=== PATIENT | female | born 1990 | race Caucasian/White ===

== ENCOUNTER → 2016-05-24 | Outpatient (CLI) | payer BC ==
[2016-05-24 18:24] LABS: BASOPHILS # (AUTO) 0.05 10*3/UL; BASOPHILS % (AUTO) 0.4 % (0-1); EOSINOPHILS % (AUTO) 1.1 % (0-8); HEMATOCRIT 36.9 % (37.0-47.0); HEMOGLOBIN 12.6 g/dL (12.0-16.0); IMM GRAN# (AUTO) 0.14 10*3/UL; LYMPHOCYTES # (AUTO) 2.33 10*3/uL; LYMPHOCYTES % (AUTO) 16.9 % (10-50); MEAN CORPUSCULAR HEMOGLOBIN 32.2 PG (27-31); MEAN CORPUSCULAR HGB CONC 34.1 g/dL (33-37); MEAN PLATELET VOLUME 11.2 FL (7.4-12.2); MONOCYTES # (AUTO) 0.59 10*3/UL (0.3-0.8); MONOCYTES % (AUTO) 4.3 % (5-15); NEUTROPHILS # (AUTO) 10.53 10*3/UL; NEUTROPHILS % (AUTO) 76.3 % (50-80); RDW COEFFICIENT OF VARIATION 12.7 % (11.5-14.5); RED BLOOD COUNT 3.91 10^6/uL (4.20-5.40); WHITE BLOOD COUNT 13.79 10^3/uL (4.8-10.8)
[2016-05-24 18:48] LABS: PLATELET MORPHOLOGY COMMENT NORMAL MORPHOLOGY (NORM)
== END ==
LOC: LAB 17:15
PROVIDERS: ATTEND Student in an Organized Health Care Education/Training Program
DX: Z36 Encounter for antenatal screening of mother (principal); Z3A.29 29 weeks gestation of pregnancy
CPT/HCPCS: 36415; 82950; 85025

== ENCOUNTER → 2016-06-09 | Outpatient (CLI) | payer BC | LOC: LAB 08:07 | PROVIDERS: ATTEND Student in an Organized Health Care Education/Training Program | DX: O26.893 Other specified pregnancy related conditions, third trimester (principal); R73.02 Impaired glucose tolerance (oral); Z3A.30 30 weeks gestation of pregnancy | CPT/HCPCS: 36415; 82951; 82952 ==

== ENCOUNTER → 2016-07-13 | Outpatient (CLI) | payer BC | LOC: MOB LAB 09:33 | PROVIDERS: ATTEND Student in an Organized Health Care Education/Training Program | DX: Z36 Encounter for antenatal screening of mother (principal); Z3A.35 35 weeks gestation of pregnancy | CPT/HCPCS: 87150 ==

== ENCOUNTER → 2016-07-28 | Outpatient (CLI) | payer BC | LOC: MOB LAB 16:20 | PROVIDERS: ATTEND Student in an Organized Health Care Education/Training Program | DX: Z36 Encounter for antenatal screening of mother (principal); Z3A.38 38 weeks gestation of pregnancy | CPT/HCPCS: 87491; 87591 ==

== ENCOUNTER 2016-07-31 18:40 | Outpatient (CLI) | payer BC ==
[2016-07-31] MEDS ORDERED: NORMAL SALINE 10 ML SYRINGE FLUSH IVP PRN (19:06)
[2016-07-31 19:13] VITALS: RESP 18; TEMP 98.2
[2016-07-31 19:16] LABS: HEMATOCRIT 38.3 % (37.0-47.0); HEMOGLOBIN 12.9 g/dL (12.0-16.0); MEAN CORPUSCULAR HEMOGLOBIN 31.2 PG (27-31); MEAN CORPUSCULAR HGB CONC 33.7 g/dL (33-37); MEAN CORPUSCULAR VOLUME 92.7 FL (81-99); MEAN PLATELET VOLUME 11.8 FL (7.4-12.2); RED BLOOD COUNT 4.13 10^6/uL (4.20-5.40)
[2016-07-31 19:26] LABS: BLOOD UREA NITROGEN 11 mg/dL (7-22); BUN/CREATININE RATIO 13.75 (6-20); EST GLOMERULAR FILTRATION > 60 (>60 ml/min/1.73m(2)); SERUM ALBUMIN 3.5 g/dL (3.5-4.8); URIC ACID 5.5 mg/dl (2.5-6.2)
--- NOTE | 2016-07-31 21:19 | PDOC(PROG) ---
Intake - - Reason for Visit/Chief Complaint: Contractions, PIH Symptoms Admitted From: Home - Estimated Due Date: 08/11/16 Gestational Age in Weeks and Days: 38 Weeks and 3 Days : 1 Para: 0 Term Births: 0 Births: 0 Number of Abortions (Spont./Elective): 0 Living Children: 0 - Labs Blood Type and Rh: B+ Group B Strep: Negative Hepatitis B Surface Antigen: Absent HIV: Negative Rubella Status: Immune VDRL/RPR: Absent Maternal - Vital Signs Last Taken Vital Signs: Vital Signs - Last Taken Temperature 98.2 F 07/31/16 19:05 Pulse Rate 84 07/31/16 19:05 Respiratory Rate 18 07/31/16 19:05 Blood Pressure 141/84 07/31/16 19:05 Pulse Ox 100 07/31/16 19:05 - Uterine Activity Uterine Contraction Monitor Mode: External Contraction Frequency(minutes): 1.5-3 Contraction Duration (seconds): 40-60 Uterine Contraction Pattern: Irregular Uterine Tone Measurement Phase: Resting Uterine Contraction Intensity: Moderate - Cervical Exam Cervical Dilation (cm): 0-1 Cervical Effacement Percentage: 90 Station: -2 Exam Performed By: Jessee Wallace/ Nick Paula RN - Vaginal Discharge Vaginal Bleeding Amount: None Vaginal Discharge Amount: None Monitoring - Uterine Activity Uterine Contraction Monitor Mode: External Contraction Frequency(minutes): 1.5-3 Contraction Duration (seconds): 40-60 Uterine Contraction Pattern: Irregular Uterine Tone Measurement Phase: Resting Uterine Contraction Intensity: Moderate Results - Labs CBC and BMP: 07/31/16 19:14 07/31/16 19:14 - Bedside Testing Bedside Urine Ketone: Negative Bedside Urine Leukocytes Esterase: Negative Bedside Urine Nitrite: Negative Bedside Urine Occult Blood: Negative Bedside Urine Protein: Negative Bedside Specific [place]: 1.000 Assessment and Plan - Patient Problems (1) EARLY LABOR Current Visit: Yes Status: AcuteSupport Text: 26 yo at 38 3/7 who presented to work not feeling well, diaphoretic. BP initially elevated. Noted to be kaushik q2-5 mins, category 1 tracing. No protein on urine dip. PIH labs drawn and WNL. With rest BPs normalized. Cervical exam /-2. 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 Patient given options of staying and rechecking vs going home, resting. Patient opted to go home. Strict return precautions discussed. To see me in clinic Art, sooner for any concerns.
== END 2016-07-31 20:00 | disposition home or self-care (01) ==
LOC: OBOP 18:40
PROVIDERS: ATTEND Student in an Organized Health Care Education/Training Program
DX: O47.1 False labor at or after 37 completed weeks of gestation (principal); O13.3 Gestational [pregnancy-induced] hypertension without significant proteinuria, third trimester; Z3A.38 38 weeks gestation of pregnancy
CPT/HCPCS: 36415; 59025; 80053; 81003; 83615; 84550; 85025; 99211

== ENCOUNTER 2016-08-01 10:56 | Inpatient (IN) | payer BC ==
[2016-08-01] MEDS ORDERED: NORMAL SALINE 10 ML SYRINGE FLUSH IVP PRN ×2 (11:07→12:24)
[2016-08-01] MEDS ORDERED: ACETAMINOPHEN 325 MG TABLET PO ONE (11:09)
[2016-08-01 11:20] LABS: HEMATOCRIT 37.1 % (37.0-47.0); HEMOGLOBIN 12.7 g/dL (12.0-16.0); MEAN CORPUSCULAR HEMOGLOBIN 31.8 PG (27-31); MEAN CORPUSCULAR HGB CONC 34.2 g/dL (33-37); MEAN PLATELET VOLUME 11.5 FL (7.4-12.2); RED BLOOD COUNT 3.99 10^6/uL (4.20-5.40)
[2016-08-01 11:26] LABS: BLOOD UREA NITROGEN 8 mg/dL (7-22); CALCIUM 8.9 mg/dL (8.7-10.7); EST GLOMERULAR FILTRATION > 60 (>60 ml/min/1.73m(2)); SERUM ALBUMIN 3.6 g/dL (3.5-4.8); URIC ACID 5.4 mg/dl (2.5-6.2)
[2016-08-01] MEDS ORDERED: ePHEDrine Inj 5 MG in Normal Saline Flush 1 ML IVP PRN (12:24)
[2016-08-01] MEDS ORDERED: BUTORPHANOL TARTRATE 2 MG/1 ML VIAL IVP PRN (12:24)
[2016-08-01] MEDS ORDERED: LIDOCAINE W/ SODIUM BICARB 0.5 ML SYR SUBD PRN (12:24)
[2016-08-01] MEDS ORDERED: CITRIC ACID/SODIUM CITRATE 30 ML CUP PO PRN (12:24)
[2016-08-01] MEDS ORDERED: NALOXONE 0.4 MG/1 ML VIAL IVP PRN (12:24)
[2016-08-01] MEDS ORDERED: CefOXitin Inj 2 GM in Sodium Chloride 0.9% 100 ML IV PRN (12:24)
[2016-08-01] MEDS ORDERED: Lidocaine 1% 10 MG/ML - 20 ML VIAL SUBCUT PRN (12:24)
[2016-08-01] MEDS ORDERED: Carboprost Inj 250 MCG/ML AMP IM PRN (12:24)
[2016-08-01] MEDS ORDERED: METHYLERGONOVINE MALEATE 0.2 MG/1 ML VIAL IM PRN (12:24)
[2016-08-01] MEDS ORDERED: TERBUTALINE SULFATE 1 MG/1 ML SDV SUBCUT PRN (12:24)
[2016-08-01] MEDS ORDERED: Phenylephrine Inj 50 MCG in Normal Saline Flush 0.5 ML IVP PRN (12:24)
[2016-08-01] MEDS ORDERED: Nalbuphine Inj 20 MG/ML Ampule IVP PRN (12:24)
[2016-08-01] MEDS ORDERED: OXYTOCIN 10 UNIT/1 ML IM PRN (12:24)
[2016-08-01] MEDS ORDERED: ONDANSETRON 4 MG/2 ML VIAL IVP PRN (12:24)
[2016-08-01] MEDS ORDERED: CALCIUM CARBONATE 500 MG (TUMS) CHEWABLE TABLET PO PRN (12:24)
[2016-08-01] MEDS ORDERED: Famotidine Inj 20 MG in Normal Saline Flush 10 ML IVP PRN ×4 (12:24)
[2016-08-01] MEDS ORDERED: Metoclopramide Inj 10 MG/2 ML VIAL IV PRN (12:24)
[2016-08-01] MEDS ORDERED: Naloxone Inj 0.01 MG in Normal Saline Flush 1 ML IVP PRN (12:24)
[2016-08-01] MEDS ORDERED: diphenhydrAMINE 50 MG/1 ML VIAL IVP PRN (12:24)
[2016-08-01] MEDS ORDERED: MISOPROSTOL 200 MCG TABLET RECTAL PRN (12:24)
[2016-08-01] MEDS ORDERED: Oxytocin 20 Units + LR 1,000 ML IV SCH (12:30)
[2016-08-01] MEDS ORDERED: LIDOCAINE W/ SODIUM BICARB 0.5 ML SYR ONE (12:37)
--- NOTE | 2016-08-01 12:42 | OB.PROGRES ---
Interval History: 26 yo at 38 4/7 weeks gestation by LMP and first tri u/s presented this morning for increased nausea, PAEZ, not feeling well in general. Upon arrival she was noted to have repeated BPs >140/90, trace protein on urine dip. She has not slept well in 2 days now with consistent contractions. PAEZ resolved since getting to the floor. has been uncomplicated. GBS negative. Received TDaP. Anterior placenta , normal anatomy scan. 1 hour OGTT 160, normal 3 hour. PMH: Asthma, very rare albuterol use, none lately Raynauds Abnormal pap 2015, s/p cryo PSH: Mccarr teeth extraction FH: Fa - HTN, BCC, HLD MGF, JOHANNA, Kimmy - celiac disease Mo - alive and well MGM - breast cancer Ricky's family history - Father - prostate cancer Maternal side - Diabetes SH: . No etoh, illicit drug or cigarette use Objective - Cervical Exam Cervical Exam: 50/-3, cephalic, mid position [place]: q 2-6 mins Heart Rate: , mod trish, +accels, -decels Heart Rate Interpretation Category: Category I - Labs CBC and BMP: 08/01/16 11:13 08/01/16 11:13 Labs - Last 24 Hours: Laboratory Results 08/01/16 Range/Units 11:13 WBC 10.36 (4.8-10.8) 10^3/uL RBC 3.99 L (4.20-5.40) 10^6/uL Hgb 12.7 (12.0-16.0) g/dL Hct 37.1 (37.0-47.0) % MCV 93.0 (81-99) FL MCH 31.8 H (27-31) PG MCHC 34.2 (33-37) g/dL RDW Std Deviation 43.4 (39-50) fL RDW Coeff of Trish 13.1 (11.5-14.5) % Plt Count 140 (140-350) 10*3/uL MPV 11.5 (7.4-12.2) FL Sodium 137 (135-145) meq/L Potassium 3.7 L (3.8-5.2) meq/L Chloride 105 (98-112) meq/L Carbon Dioxide 21 L (23-33) meq/L Anion Gap 11 (5-20) BUN 8 (7-22) mg/dL Creatinine 0.8 (0.50-1.20) mg/dL Estimated GFR > 60 (>60 ml/min/1.73m(2)) BUN/Creatinine Ratio 10.00 (6-20) Glucose 76 L (78-110) mg/dL Calculated Osmolality 280.0 (267-292) mOsm/kg Uric Acid 5.4 (2.5-6.2) mg/dl Calcium 8.9 (8.7-10.7) mg/dL Total Bilirubin 0.7 (0.3-1.2) mg/dL AST 33 (8-39) IU/L ALT 25 (9-52) IU/L Alkaline Phosphatase 184 H (38-126) IU/L Lactate Dehydrogenase 445 (313-618) IU/L Total Protein 6.5 (6.1-8.0) g/dL Albumin 3.6 (3.5-4.8) g/dL Globulin 2.9 (2.50-4.10) g/dL Albumin/Globulin Ratio 1.20 L (1.3-2.0) mg/g - Vital Signs Last Taken Vital Signs: Vital Signs - Last Taken Temperature 98.2 F 08/01/16 11:34 Pulse Rate 78 08/01/16 11:34 Respiratory Rate 18 08/01/16 11:34 Blood Pressure 159/92 08/01/16 11:34 Pulse Ox 99 08/01/16 11:34 - Additional Details Additional Details: Reflexes 3+, no clonus 2+ non pitting edema of legs Assessment and Plan - Patient Problems (1) Gestational hypertension Current Visit: Yes Status: Acute Support Text: 26 yo at 38 4/7 weeks gestation with gestational HTN, admitted for IOL. -BPs elevated today to >140/90, but not in severe range. Urine dip is trace protein, we do not currently have reagent for in house urine proteins, would be a sendout. Gestational htn labs all wnl otherwise. -Alphonse too frequently for cytotec, will start with low dose pit for cervical ripening. -Continue close observation -Will eventually want an epidural for pain
[2016-08-01] MEDS: Oxytocin 20 Units + LR 1,000 ML IV SCH ×2 (13:15→14:45)
[2016-08-01] MEDS: fentaNYL Inj 100 MCG/2 ML VIAL IV PRN (19:40)
--- NOTE | 2016-08-01 20:13 | OB.PROGRES ---
Interval History: 26 yo at 38 4/7 weeks gestation, admitted for gestational HTN. Her spot urine pr:cr came back elevated at 0.35, so technically she does meet criteria for preeclampsia. She had 7 hours of low dose pit without change. Given h/o cryotherapy to cervix and likely scar tissue, will trial mechanical dilation. Patient comfortable, slight PAEZ but has improved. Does not want to take tylenol. Objective - Cervical Exam Painter: q2-4 mins Heart Rate: baseline 140, mod trish, +accels, no decels Heart Rate Interpretation Category: Category I - Labs CBC and BMP: 08/01/16 11:13 08/01/16 11:13 Labs - Last 24 Hours: Laboratory Results 08/01/16 08/01/16 Range/Units 11:13 15:30 WBC 10.36 (4.8-10.8) 10^3/uL RBC 3.99 L (4.20-5.40) 10^6/uL Hgb 12.7 (12.0-16.0) g/dL Hct 37.1 (37.0-47.0) % MCV 93.0 (81-99) FL MCH 31.8 H (27-31) PG MCHC 34.2 (33-37) g/dL RDW Std Deviation 43.4 (39-50) fL RDW Coeff of Trish 13.1 (11.5-14.5) % Plt Count 140 (140-350) 10*3/uL MPV 11.5 (7.4-12.2) FL Sodium 137 (135-145) meq/L Potassium 3.7 L (3.8-5.2) meq/L Chloride 105 (98-112) meq/L Carbon Dioxide 21 L (23-33) meq/L Anion Gap 11 (5-20) BUN 8 (7-22) mg/dL Creatinine 0.8 (0.50-1.20) mg/dL Estimated GFR > 60 (>60 ml/min/1.73m(2)) BUN/Creatinine Ratio 10.00 (6-20) Glucose 76 L (78-110) mg/dL Calculated Osmolality 280.0 (267-292) mOsm/kg Uric Acid 5.4 (2.5-6.2) mg/dl Calcium 8.9 (8.7-10.7) mg/dL Total Bilirubin 0.7 (0.3-1.2) mg/dL AST 33 (8-39) IU/L ALT 25 (9-52) IU/L Alkaline Phosphatase 184 H (38-126) IU/L Lactate Dehydrogenase 445 (313-618) IU/L Total Protein 6.5 (6.1-8.0) g/dL Albumin 3.6 (3.5-4.8) g/dL Globulin 2.9 (2.50-4.10) g/dL Albumin/Globulin Ratio 1.20 L (1.3-2.0) mg/g Ur Random Creatinine 34 MG/DL U Random Total Protein 12 H (0-11.99) MG/DL - Vital Signs Last Taken Vital Signs: Vital Signs - Last Taken Temperature 98.3 F 08/01/16 13:15 Pulse Rate 72 08/01/16 18:00 Respiratory Rate 20 08/01/16 20:05 Blood Pressure 144/71 08/01/16 18:00 Pulse Ox 98 08/01/16 16:30 Assessment and Plan - Patient Problems (1) Gestational hypertension Current Visit: Yes Status: Acute Support Text: 26 yo at 38 4/7 weeks gestation with preeclampsia by pressures >140/90 and urine pr:cr 0.35, admitted for IOL. -Alphonse too frequently for cytotec, cook catheter placed without issue ( 80cc in uterine bulb, 40cc in vaginal bulb) -Continue close observation -Will eventually want an epidural for pain
--- NOTE | 2016-08-02 09:03 | OB.PROGRES ---
Date and Time of Service: 08/02/16 @ 0855 Interval History: Pt was seen this morning on labor and delivery. She had been admitted yesterday afternoon with symptomatic mild pre-eclampsia. Her has been essentially uncomplicated to this point. She does have a h/o asthma, with intermittent albuterol MDI use. She also has the history of cryotherapy to her cervix in 2014. Her cervix was 1/50/-2 on admission, with frequent, regular contractions. She was started on low-dose pitocin yesterday and had no cervical change despite painful contractions. A Cook catheter was placed last noc per Dr. Noriega, left in for 12 hours and taken out this morning. Her cervix remains 1/75/-2. She is having infrequent, nonpainful contractions this morningve. She denies PAEZ, vision changes, or RUQ pain. Her edema remains unchanged. Baby is active. She has had no vaginal bleeding or gushes of fluid. Objective - Cervical Exam Cervical Exam: 75/-2 [place]: irregular, every 7-11 minutes. Pt is not feeling her contractions. They palpate mild. Heart Rate: 150, moderate variabilty, no decels noted. Heart Rate Interpretation Category: Category I - Labs CBC and BMP: 08/01/16 11:13 08/01/16 11:13 Labs - Last 24 Hours: Laboratory Results 08/01/16 08/01/16 Range/Units 11:13 15:30 WBC 10.36 (4.8-10.8) 10^3/uL RBC 3.99 L (4.20-5.40) 10^6/uL Hgb 12.7 (12.0-16.0) g/dL Hct 37.1 (37.0-47.0) % MCV 93.0 (81-99) FL MCH 31.8 H (27-31) PG MCHC 34.2 (33-37) g/dL RDW Std Deviation 43.4 (39-50) fL RDW Coeff of Trish 13.1 (11.5-14.5) % Plt Count 140 (140-350) 10*3/uL MPV 11.5 (7.4-12.2) FL Sodium 137 (135-145) meq/L Potassium 3.7 L (3.8-5.2) meq/L Chloride 105 (98-112) meq/L Carbon Dioxide 21 L (23-33) meq/L Anion Gap 11 (5-20) BUN 8 (7-22) mg/dL Creatinine 0.8 (0.50-1.20) mg/dL Estimated GFR > 60 (>60 ml/min/1.73m(2)) BUN/Creatinine Ratio 10.00 (6-20) Glucose 76 L (78-110) mg/dL Calculated Osmolality 280.0 (267-292) mOsm/kg Uric Acid 5.4 (2.5-6.2) mg/dl Calcium 8.9 (8.7-10.7) mg/dL Total Bilirubin 0.7 (0.3-1.2) mg/dL AST 33 (8-39) IU/L ALT 25 (9-52) IU/L Alkaline Phosphatase 184 H (38-126) IU/L Lactate Dehydrogenase 445 (313-618) IU/L Total Protein 6.5 (6.1-8.0) g/dL Albumin 3.6 (3.5-4.8) g/dL Globulin 2.9 (2.50-4.10) g/dL Albumin/Globulin Ratio 1.20 L (1.3-2.0) mg/g Ur Random Creatinine 34 MG/DL U Random Total Protein 12 H (0-11.99) MG/DL - Vital Signs Last Taken Vital Signs: Vital Signs - Last Taken Temperature 97.9 F 08/02/16 02:30 Pulse Rate 63 08/02/16 03:38 Respiratory Rate 16 08/02/16 06:50 Blood Pressure 113/61 08/02/16 03:38 Pulse Ox 100 08/02/16 06:50 Assessment and Plan - Assessment / Plan Additional Assessment/Plan Details: A/p: 26 yo G1 at 38 5/7 weeks, with mild pre-eclampsia. -no cervical change with Cook catheter or low-dose pitocin. She does have a h/o cryotherapy 2 years ago. There does feel like there is some scar tissue/a band of tissue present. Will try cytotec this morning as she is not kaushik as much to see if we can get some cervical change. -recheck labs this morning (gestational HTN panel) -GBS negative. -will want an epidural at some point for pain control. -h/o asthma. -continue expectant management. Discussed plan with pt and her spouse at the bedside today.
[2016-08-02] MEDS: Misoprostol Tab 100 MCG TAB VAGINAL SCH ×2 (09:28→17:33)
[2016-08-02 09:31] LABS: HEMATOCRIT 34.9 % (37.0-47.0); HEMOGLOBIN 11.9 g/dL (12.0-16.0); MEAN CORPUSCULAR HEMOGLOBIN 31.7 PG (27-31); MEAN CORPUSCULAR HGB CONC 34.1 g/dL (33-37); MEAN CORPUSCULAR VOLUME 93.1 FL (81-99); MEAN PLATELET VOLUME 11.7 FL (7.4-12.2); RED BLOOD COUNT 3.75 10^6/uL (4.20-5.40)
[2016-08-02 09:37] LABS: BLOOD UREA NITROGEN 11 mg/dL (7-22); BUN/CREATININE RATIO 13.75 (6-20); EST GLOMERULAR FILTRATION > 60 (>60 ml/min/1.73m(2)); SERUM ALBUMIN 3.2 g/dL (3.5-4.8); URIC ACID 6.2 mg/dl (2.5-6.2)
[2016-08-02] MEDS ORDERED: ACETAMINOPHEN 325 MG TABLET PO ONE (09:38)
[2016-08-02] MEDS: fentaNYL Inj 100 MCG/2 ML VIAL IV PRN ×5 (14:36→17:08)
[2016-08-02] MEDS: Lactated Ringers-OB Dept 1,000 ML PRIMARY IV SCH ×2 (15:58→17:32)
[2016-08-02] MEDS ORDERED: Sodium Chloride 0.9% vial 10 ML ONE ×3 (16:28→20:30)
[2016-08-02] MEDS ORDERED: Fent/Bupiv 2mcg/0.0625% Epid 250 ML ONE (16:43)
--- NOTE | 2016-08-02 16:58 | CRNA.PROCE ---
Central Neuraxis Block Placear - - Safety Measures: Time Out Taken, Site Verified - - Type of Block: Epidural Reason for Block: Analgesia Moniters Used During Block: SPO2, NIBP Sedation Used - Enter Amount Used in Comment Field: Fentanyl (mcg): Yes (200mcg) Skin Prep Used: Betadine Draped: Yes Skin Infiltration - Enter Amount Used in Comment Field: 1% Xylocaine (mL): Yes ( skin wheal) Introducer User: 18 Gauge Hustead Local Anesthetic - Enter Amount Used in Comment Field: 5.0 % Xylocaine with Dextrose (ml): Yes (5ml test dose neg) Number of Centimeters Catheter Threaded: 4 Bioclusive Dressing Applied: Yes - - Additional Details: Requests epidural for ELIESER analgesia. History obtained and chart reviewed. Reviewed risks and benefits and she wishes to proceed. Sitting, monitors, landmarks id'd, betadine prep, drape, skin wheal l3-4, #18 hustead passed and bone, redirected, bone. Pt repositioned and skin wheal L4-5, hustead passed and LULÚ to saline obtained. Cath threaded 4cm, heme noted, flushed and heme remains. Cath removed intact. Replaced at L4-5 with LULÚ and cath easily 4cm, no heme noted this pass. 5ml test dose neg. Cath secured and PCEA started. Laboratory Results 08/01/16 08/01/16 08/02/16 Range/Units 11:13 15:30 09:20 WBC 10.36 9.42 (4.8-10.8) 10^3/uL RBC 3.99 L 3.75 L (4.20-5.40) 10^6/uL Hgb 12.7 11.9 L (12.0-16.0) g/dL Hct 37.1 34.9 L (37.0-47.0) % MCV 93.0 93.1 (81-99) FL MCH 31.8 H 31.7 H (27-31) PG MCHC 34.2 34.1 (33-37) g/dL RDW Std Deviation 43.4 42.7 (39-50) fL RDW Coeff of Trish 13.1 13.2 (11.5-14.5) % Plt Count 140 137 L (140-350) 10*3/uL MPV 11.5 11.7 (7.4-12.2) FL Sodium 137 136 (135-145) meq/L Potassium 3.7 L 3.7 L (3.8-5.2) meq/L Chloride 105 105 (98-112) meq/L Carbon Dioxide 21 L 20 L (23-33) meq/L Anion Gap 11 11 (5-20) BUN 8 11 (7-22) mg/dL Creatinine 0.8 0.8 (0.50-1.20) mg/dL Estimated GFR > 60 > 60 (>60 ml/min/1.73m(2)) BUN/Creatinine Ratio 10.00 13.75 (6-20) Glucose 76 L 87 (78-110) mg/dL Calculated Osmolality 280.0 279.0 (267-292) mOsm/kg Uric Acid 5.4 6.2 (2.5-6.2) mg/dl Calcium 8.9 9.0 (8.7-10.7) mg/dL Total Bilirubin 0.7 0.6 (0.3-1.2) mg/dL AST 33 30 (8-39) IU/L ALT 25 20 (9-52) IU/L Alkaline Phosphatase 184 H 155 H (38-126) IU/L Lactate Dehydrogenase 445 410 (313-618) IU/L Total Protein 6.5 6.1 (6.1-8.0) g/dL Albumin 3.6 3.2 L (3.5-4.8) g/dL Globulin 2.9 2.9 (2.50-4.10) g/dL Albumin/Globulin Ratio 1.20 L 1.10 L (1.3-2.0) mg/g Ur Random Creatinine 34 MG/DL U Random Total Protein 12 H (0-11.99) MG/DL Vital Signs - Last Taken Temperature 97.9 F 08/02/16 10:30 Pulse Rate 64 08/02/16 15:00 Respiratory Rate 18 08/02/16 15:32 Blood Pressure 140/86 08/02/16 15:00 Pulse Ox 99 08/02/16 15:32
[2016-08-02] MEDS ORDERED: fentaNYL 2 MCG/BUPIVACAINE 0.0625%/NS 0.9% 250 ML BAG EPIDURAL SCH (17:00)
[2016-08-02] MEDS ORDERED: BUPivacaine Inj 0.25% PF - 10ml vial ONE ×2 (17:06→20:30)
--- NOTE | 2016-08-02 17:15 | CRNA.PROGR ---
Anesthesia Note Anesthesia Progress Note: Epidural pain control all but sacral innervation, discussed possible reasons and gave 20ml 1/8% marcaine plain to rule out a volume issue.
[2016-08-02] MEDS: Oxytocin 20 Units + LR 1,000 ML IV SCH ×2 (17:33→21:50)
--- NOTE | 2016-08-02 18:48 | OB.PROGRES ---
Date and Time of Service: 08/02/16 @ 1800 Interval History: Pt is finally comfortable with her epidural. Continues to leak clear fluid. Wanting to rest right now, according to nursing staff. Objective - Cervical Exam Cervical Exam: / [place]: every 2-5 minutes, come couplets now. Heart Rate: 130s, moderate variability, early decels noted. Heart Rate Interpretation Category: Category I - Labs CBC and BMP: 08/02/16 09:20 08/02/16 09:20 Labs - Last 24 Hours: Laboratory Results 08/02/16 Range/Units 09:20 WBC 9.42 (4.8-10.8) 10^3/uL RBC 3.75 L (4.20-5.40) 10^6/uL Hgb 11.9 L (12.0-16.0) g/dL Hct 34.9 L (37.0-47.0) % MCV 93.1 (81-99) FL MCH 31.7 H (27-31) PG MCHC 34.1 (33-37) g/dL RDW Std Deviation 42.7 (39-50) fL RDW Coeff of Trish 13.2 (11.5-14.5) % Plt Count 137 L (140-350) 10*3/uL MPV 11.7 (7.4-12.2) FL Sodium 136 (135-145) meq/L Potassium 3.7 L (3.8-5.2) meq/L Chloride 105 (98-112) meq/L Carbon Dioxide 20 L (23-33) meq/L Anion Gap 11 (5-20) BUN 11 (7-22) mg/dL Creatinine 0.8 (0.50-1.20) mg/dL Estimated GFR > 60 (>60 ml/min/1.73m(2)) BUN/Creatinine Ratio 13.75 (6-20) Glucose 87 (78-110) mg/dL Calculated Osmolality 279.0 (267-292) mOsm/kg Uric Acid 6.2 (2.5-6.2) mg/dl Calcium 9.0 (8.7-10.7) mg/dL Total Bilirubin 0.6 (0.3-1.2) mg/dL AST 30 (8-39) IU/L ALT 20 (9-52) IU/L Alkaline Phosphatase 155 H (38-126) IU/L Lactate Dehydrogenase 410 (313-618) IU/L Total Protein 6.1 (6.1-8.0) g/dL Albumin 3.2 L (3.5-4.8) g/dL Globulin 2.9 (2.50-4.10) g/dL Albumin/Globulin Ratio 1.10 L (1.3-2.0) mg/g - Vital Signs Last Taken Vital Signs: Vital Signs - Last Taken Temperature 98.2 F 08/02/16 17:03 Pulse Rate 88 08/02/16 16:30 Respiratory Rate 16 08/02/16 17:17 Blood Pressure 154/92 08/02/16 16:30 Pulse Ox 99 08/02/16 16:30 Assessment and Plan - Patient Problems (1) Mild pre-eclampsia affecting first Current Visit: Yes Status: Acute - Assessment / Plan Additional Assessment/Plan Details: -Pt had a cervical band, which was reduced somewhat by the nurse when she was checked. She went from 1-2 to a 3-4 cm. She does have an IUPC placed to monitor contractions. Will augment with pitocin if needed to attain adequate contractions. -GBS negative. -comfortable with epidural. -continue expectant management.
[2016-08-03] MEDS: fentaNYL Inj 100 MCG/2 ML VIAL IV PRN ×2 (00:50→04:33)
[2016-08-03] MEDS ORDERED: Sodium Chloride 0.9% vial 10 ML ONE (01:36)
[2016-08-03] MEDS ORDERED: BUPivacaine Inj 0.25% PF - 10ml vial ONE (01:36)
--- NOTE | 2016-08-03 01:50 | CRNA.PROGR ---
Anesthesia Note Anesthesia Progress Note: Has had some returning pain and continues to have some leakage from the epidural injection site. The site and catheter insertion pitt still look ok and it appears the fluid is vectoring out along the catheter but the catheter remains in. Manual bolus done with 20ml 1/8% marcaine. If this is not effective will discuss placing an intrathecal for remainder of analgesia requirements.
[2016-08-03] MEDS ORDERED: LIDOCAINE 2%/ EPI 1:200,000 - 20 ML VIAL ONE (02:20)
[2016-08-03] MEDS ORDERED: Ropivacaine 0.2% VIAL 20 ML ONE (02:28)
[2016-08-03] MEDS ORDERED: fentaNYL Inj 100 MCG/2 ML VIAL ONE (02:28)
--- NOTE | 2016-08-03 02:50 | CRNA.PROCE ---
Central Neuraxis Block Placemt - - Safety Measures: Time Out Taken, Site Verified - - Type of Block: Subarachnoid Reason for Block: Analgesia Moniters Used During Block: SPO2, NIBP Skin Prep Used: Betadine Draped: Yes Skin Infiltration - Enter Amount Used in Comment Field: 1% Xylocaine (mL): Yes Introducer User: 23 Gauge Spinal Needle Used: 25 [place] 80 mm Local Anesthetic - Enter Amount Used in Comment Field: Other Local Anesthetic: Yes (4mg 0.2% Ropivacaine) Additive Used - Enter Amount Used in Comment Field: Fentanyl (mcg): Yes (20mcg) - - Additional Details: Epidural inadequate, catheter dc'c intact, appears it had migrated out. Intrathecal for ELIESER analgesia
[2016-08-03] MEDS ORDERED: Oxytocin 20 Units + LR 1,000 ML IV SCH ×2 (03:30→08:11)
[2016-08-03] MEDS ORDERED: ePHEDrine Inj 50 MG/ML AMP ONE (04:55)
[2016-08-03] MEDS ORDERED: Oxytocin 20 Units + LR 1,000 ML IV ONE (04:59)
[2016-08-03] MEDS ORDERED: Lactated Ringers 1,000 ML PRIMARY IV ONE (05:19)
[2016-08-03] MEDS ORDERED: HYDROmorphone 2 MG/1 ML IVP PRN (05:58)
[2016-08-03] MEDS ORDERED: ONDANSETRON 4 MG/2 ML VIAL IVP PRN ×2 (05:58→08:11)
[2016-08-03] MEDS ORDERED: fentaNYL Inj 100 MCG/2 ML VIAL IVP PRN (05:58)
[2016-08-03] MEDS ORDERED: NORMAL SALINE 10 ML SYRINGE FLUSH IVP PRN ×2 (05:58→08:11)
--- NOTE | 2016-08-03 06:14 | OB.PROGRES ---
Date and Time of Service: 08/03/16 @ 0445 Interval History: Pt has had issues with pain control most of the noc. She has had her epidural redosed per Paulina Eaton CRNA several times. Once she was again comfortable this morning, pitocin was increased because her contractions were not adequate. However, the baby started having recurrent late decelerations, which stopped as soon as the pitocin was discontinued. Objective - Cervical Exam Cervical Exam: 6-7/cervix is swollen so difficult to tell effacement/-2 [place]: every 2-3 minutes, palpating hard Heart Rate: 130s, moderate variability, no current decels. Heart Rate Interpretation Category: Category I - Labs CBC and BMP: 08/02/16 09:20 08/02/16 09:20 Labs - Last 24 Hours: Laboratory Results 08/02/16 08/03/16 Range/Units 09:20 04:48 WBC 9.42 (4.8-10.8) 10^3/uL RBC 3.75 L (4.20-5.40) 10^6/uL Hgb 11.9 L (12.0-16.0) g/dL Hct 34.9 L (37.0-47.0) % MCV 93.1 (81-99) FL MCH 31.7 H (27-31) PG MCHC 34.1 (33-37) g/dL RDW Std Deviation 42.7 (39-50) fL RDW Coeff of Trish 13.2 (11.5-14.5) % Plt Count 137 L (140-350) 10*3/uL MPV 11.7 (7.4-12.2) FL Sodium 136 (135-145) meq/L Potassium 3.7 L (3.8-5.2) meq/L Chloride 105 (98-112) meq/L Carbon Dioxide 20 L (23-33) meq/L Anion Gap 11 (5-20) BUN 11 (7-22) mg/dL Creatinine 0.8 (0.50-1.20) mg/dL Estimated GFR > 60 (>60 ml/min/1.73m(2)) BUN/Creatinine Ratio 13.75 (6-20) Glucose 87 (78-110) mg/dL Calculated Osmolality 279.0 (267-292) mOsm/kg Uric Acid 6.2 (2.5-6.2) mg/dl Calcium 9.0 (8.7-10.7) mg/dL Total Bilirubin 0.6 (0.3-1.2) mg/dL AST 30 (8-39) IU/L ALT 20 (9-52) IU/L Alkaline Phosphatase 155 H (38-126) IU/L Lactate Dehydrogenase 410 (313-618) IU/L Total Protein 6.1 (6.1-8.0) g/dL Albumin 3.2 L (3.5-4.8) g/dL Globulin 2.9 (2.50-4.10) g/dL Albumin/Globulin Ratio 1.10 L (1.3-2.0) mg/g Blood Type B POSITIVE Antibody Screen Negative - Vital Signs Last Taken Vital Signs: Vital Signs - Last Taken Temperature 98.2 F 08/02/16 17:03 Pulse Rate 70 08/03/16 00:15 Respiratory Rate 18 08/02/16 19:00 Blood Pressure 140/83 08/03/16 00:00 Pulse Ox 99 08/03/16 00:15 Assessment and Plan - Patient Problems (1) Mild pre-eclampsia affecting first Current Visit: Yes Status: Acute (2) Arrest of descent, delivered, current hospitalization Current Visit: Yes Status: Acute - Assessment / Plan Additional Assessment/Plan Details: -pt has not changed her cervix for the past several hours. The baby is not tolerating augmentation of her contractions with pitocin. I discussed the options with the pt and at this point, I would advise operative delivery via section. The pt agrees with this plan. Consents were signed, OR crew was notified and pt will be taken to the OR as soon as the crew is here and ready.
[2016-08-03] MEDS ORDERED: KETOROLAC 15 MG/1 ML VIAL ONE (07:45)
[2016-08-03] MEDS: KETOROLAC 15 MG/1 ML VIAL IVP PRN ×3 (07:45→20:11)
[2016-08-03] MEDS ORDERED: oxyCODONE-ACETAMINOPHEN 5-325 TAB PO ONE (07:54)
[2016-08-03] MEDS: oxyCODONE-ACETAMINOPHEN 5-325 TAB PO PRN ×4 (08:00→20:11)
[2016-08-03] MEDS ORDERED: OXYTOCIN 10 UNIT/1 ML IM ONE (08:11)
[2016-08-03] MEDS ORDERED: Famotidine Inj 20 MG in Normal Saline Flush 10 ML IVP PRN (08:11)
[2016-08-03] MEDS ORDERED: diphenhydrAMINE 25 MG CAPSULE PO PRN (08:11)
[2016-08-03] MEDS ORDERED: MISOPROSTOL 200 MCG TABLET RECTAL ONE (08:11)
[2016-08-03] MEDS ORDERED: LANOLIN HPA 40 GM TUBE TOPICAL PRN (08:11)
[2016-08-03] MEDS ORDERED: DIPH,PERTUSS,TET(ADACEL) VAC/PF 0.5 ML (Tdap) IM SCH (08:11)
[2016-08-03] MEDS ORDERED: KETOROLAC 30 MG/1 ML VIAL IVP PRN (08:11)
[2016-08-03] MEDS ORDERED: Naloxone Inj 0.01 MG, Sodium Chloride 0.9% vial 1 ML IVP PRN ×2 (08:11)
[2016-08-03] MEDS ORDERED: Nalbuphine Inj 20 MG/ML Ampule IVP PRN (08:11)
[2016-08-03] MEDS ORDERED: diphenhydrAMINE 50 MG/1 ML VIAL IV PRN (08:11)
[2016-08-03] MEDS ORDERED: CALCIUM CARBONATE 500 MG (TUMS) CHEWABLE TABLET PO PRN (08:11)
[2016-08-03] MEDS ORDERED: HYDROmorphone 2 MG/1 ML IV PRN (08:11)
--- NOTE | 2016-08-03 08:53 | OB.OP.NOTE ---
Operative Report - - Surgeon: Vita Weller MD Stockbroking Dealer: Noé Del Cid MD Anesthesia Type: Regional Anesthesia Provider: Edgar Eaton CRNA Surgery Date: 08/03/16 Preoperative Diagnosis: Failure to progress, cephalopelvic disproportion Postoperative Diagnosis: same, delivered Procedure: Primary section Complications: none Estimated Blood Loss (mL): 500 Urine Output (mL): 200 Fluids: 1000 cc of LR Indications: Pt is a 26 yo G1 at 38 5/7 weeks who was admitted for symptomatic mild pre- eclampsia. She underwent cervical ripening with low dose pitocin, a Cook catheter and then was augmented with artificial rupture of membranes and then pitocin. She had an IUPC placed to accurately document contractions. She had a very long latent labor and then a protracted active labor as well. Her cervix was dilated to as much as 8 cm, but then actually regressed as her cervix became more swollen during labor. Baby also did not tolerate pitocin augmentation (even low dose at 1-2 mU), with recurrent late decelerations. Pt was counseled on all of the above and agreed to proceed with a primary section. Findings: female infant in OP presentation, hand up to face, clear amniotic fluid. Description of Procedure: The patient was taken to the operating room where spinal anesthesia was found to be adequate. She was then prepared and draped in the normal sterile fashion in the dorsal supine position with a leftward tilt. A Pfannenstiel skin incision was then made with the scalpel and carried through to the underlying layer of fascia with the Bovie. The fascia was incised in the midline and the incision extended laterally with the Bovie. The superior aspect of the fascial incision was then grasped with Jai clamps, elevated, and the underlying rectus muscles dissected off bluntly. Attention was then turned to the inferior aspect of this incision which, in a similar fashion, was grasped with Jai clamps and the rectus muscles dissected off both bluntly and with the Bovie. The rectus muscles were then in the midline, and the peritoneum identified and entered digitally. The peritoneal incision was then extended superiorly and inferiorly with good visualization of the bladder. The Grant retractor was then inserted and the vesicouterine peritoneum was identified. The lower uterine segment was incised in a transverse fashion with the scalpel. The uterine incision was then extended laterally in a blunt fashion. The infant' s head was delivered atraumatically. The nose and mouth were suctioned with the bulb suction and the cord clamped and cut. The was handed off to the awaiting nurse. Cord gases and cord blood were sent for analysis. The placenta was then removed manually; the uterus exteriorized, and cleared of all clots and debris. The uterine incision was repaired with 0 Vicryl in a running, locked fashion. A second layer of the same suture was used to obtain excellent hemostasis. The peritoneal cavity was then copiously irrigated with warm saline. The uterus was returned to the abdomen. The paracolic gutters were copiously irrigated with warm saline and a second look at the uterine incision continued to reveal excellent hemostasis. The peritoneum was closed with 3-0 Vicryl. The fascia was reapproximated with 0 vicryl in a running fashion. The subcutaneous space was irrigated copiously with warm saline and then closed first with 3-0 Vicryl and then more superficially with Insorb absorbable sutures. The skin was reapproximated with Steri-Strips and a Silverlon dressing applied. Fundal massage was completed with no clots in vaginal vault. The patient tolerated the procedure well. Sponge, lap, and needle counts were correct x2. Mefoxin was given preoperatively less than one hour prior to incision time. The patient was taken to the recovery room in stable condition. Patient Problems - Patient Problem List (1) Mild pre-eclampsia affecting first Status: Acute (2) Arrest of descent, delivered, current hospitalization Status: Acute
[2016-08-03] MEDS: D5-LR 1,000 ML PRIMARY IV SCH (12:05)
[2016-08-04] MEDS: oxyCODONE-ACETAMINOPHEN 5-325 TAB PO PRN ×5 (00:11→16:27)
[2016-08-04] MEDS: Lactated Ringers-OB Dept 1,000 ML PRIMARY IV SCH ×2 (00:18→03:14)
[2016-08-04] MEDS: Misoprostol Tab 100 MCG TAB VAGINAL SCH ×2 (00:18→03:15)
[2016-08-04] MEDS: D5-LR 1,000 ML PRIMARY IV SCH (03:12)
[2016-08-04] MEDS: KETOROLAC 15 MG/1 ML VIAL IVP PRN (03:48)
[2016-08-04 05:32] LABS: HEMATOCRIT 32.1 % (37.0-47.0); HEMOGLOBIN 10.8 g/dL (12.0-16.0); MEAN CORPUSCULAR HEMOGLOBIN 32.1 PG (27-31); MEAN CORPUSCULAR HGB CONC 33.6 g/dL (33-37); MEAN CORPUSCULAR VOLUME 95.5 FL (81-99); MEAN PLATELET VOLUME 12.1 FL (7.4-12.2); RED BLOOD COUNT 3.36 10^6/uL (4.20-5.40)
[2016-08-04] MEDS ORDERED: IBUPROFEN 800 MG TABLET PO PRN (06:22)
[2016-08-04] MEDS ORDERED: Senna/Docusate Tab 1 TAB TAB PO SCH (09:00)
[2016-08-04] MEDS ORDERED: Prenatal Multivitamin Tab 1 TAB TAB PO SCH (09:00)
[2016-08-04 16:38] VITALS: RESP 18; TEMP 98
--- NOTE | 2016-08-04 17:19 | OB.PROGRES ---
Subjective Post Op Day: 1 Pain Management: PO Shah Catheter: No Flatus: Yes Diet: Regular Feeding Method: Exculsively Ambulating: Yes Concerns / Additional Information: Doing great. Took a shower this morning, dressing changed. Swelling improving. Doing well. Objective - General General Appearance: POSITIVE: No Acute Distress, Cooperative - Cardiovacular Cardiovascular Exam: POSITIVE: RRR Edema: +2 Pedal Edema Extremities: Negative Alexandrea's - Bilaterally - Respiratory Respiratory Exam: POSITIVE: Clear to Auscultation - Bilaterally, Breathing Non Labored - Reflexes Clonus (indicate extremity in comment field): Absent - Abdomen Bowel Sounds: Present Abdominal Wound Assessment: Silverlone Dressing - Fundus/Lochia/Perineum Uterus Consistency: Firm Uterus Position: POSITIVE: Below Umbilicus Assesstment / Plan (1) Mild pre-eclampsia affecting first Current Visit: Yes Status: Acute (2) S/P section Current Visit: Yes Status: AcuteSupport Text: 26 yo s/p primary LTCS. complicated by mild preeclampsia at the end. -Tolerating a regular diet. -Pain well controlled -Breast feeding -D/c today, f/u with me in 1 week for incision check
--- NOTE | 2016-08-04 17:25 | DCSUMMARY ---
Hospitalization Summary Admit Date: 08/01/16 Discharge Date: 08/04/16 Primary Diagnosis:: s/p primary LTCS Secondary Diagnosis:: IOL for preeclampsia without severe features Primary Surgery and Date: LTCS 08/03/16 Delivery Type: Hospital Course: 26 yo admitted at 38 3/7 weeks gestation for preeclampsia with elevated pressures and urine pr:cr level 0.35. Induction was started with low dose pitocin without change. A cook catheter was then placed overnight, again with no change. Her cervix notably had scar tissue 2/2 cryotherapy in 2014. She underwent SROM and then with a cervical check by SCOTT Wallace was able to break up that scar tissue. Induction was continued with pitocin and despite adequate contractions, was unable to progress. Of note too, the fetus did not tolerate the pitocin later in the induction as well. Decision made to proceed with primary LTCS. Uncomplicated C/s and postop course. / Postop Complications: none apparent Vici Complications: none apparent Exam - Vitals Vital Signs: Vital Signs Temperature 98 F Temperature Source Oral Pulse Rate [Pulse Oximeter] 74 Pulse Rate 85 Respiratory Rate [cerv] 16 Respiratory Rate 18 Blood Pressure [Left Arm] 113/62 Blood Pressure [Right Arm] 139/75 Blood Pressure 124/72 Pulse Ox 99 Oxygen Delivery Method Room Air Height 5 ft 3 in Weight 156 lb 0.7 oz Patient Problems - Patient Problem List (1) Mild pre-eclampsia affecting first Current Visit: Yes Status: Acute (2) S/P section Current Visit: Yes Status: AcuteSupport Text: 26 yo s/p primary LTCS. complicated by mild preeclampsia at the end. -Tolerating a regular diet -BPs stable, will recheck in 2 days. Strict return precautions discussed -Pain well controlled -Breast feeding -Continue PNV, Rxs for motrin 800 mg, percocet 5/325 and sennakot sent to pharmacy -D/c today, f/u with me in 1 week for incision check
== END 2016-08-04 17:06 | disposition home or self-care (01) | DRG 765 ==
LOC: OBOP 10:56 → OBIP 12:24
PROVIDERS: ADMIT Student in an Organized Health Care Education/Training Program; ATTEND Family Medicine
PROC: 10D00Z1 Extraction of Products of Conception, Low, Open Approach (ICD-10-PCS; principal; 2016-08-01)
DX: O62.0 Primary inadequate contractions (principal); O14.03 Mild to moderate pre-eclampsia, third trimester; O33.8 Maternal care for disproportion of other origin; Z3A.38 38 weeks gestation of pregnancy; Z37.0 Single live birth
CPT/HCPCS: 36415; 80053; 81003; 82565; 83615; 84156; 84550; 85025; 85027; 86850; 86900; 86901; 94150; 94761; A4216; J1885; J2405; J2765; J3010; J3490; J7050; J7120